=== PATIENT | male | born 1975 | race Caucasian/White ===

== ENCOUNTER 2021-11-07 02:54 | Inpatient (IN) | payer OTHER ==
[~2021-11-07] VITALS: Ht 180.3 cm; Wt 121.8 kg
[2021-11-07 02:57] VITALS: BP 129/67
[2021-11-07] MEDS ORDERED: LISINOPRIL10 MG (03:07)
[2021-11-07] MEDS ORDERED: NOVOLOG100 UNIT/M SUBQ (03:08)
[2021-11-07] MEDS ORDERED: RENAL-VITE TAB0.8 MG PO (03:18)
[2021-11-07] MEDS ORDERED: CARVEDILOL12.5 MG PO (03:18)
[2021-11-07] MEDS ORDERED: GABAPENTIN100 MG PO (03:18)
[2021-11-07] MEDS ORDERED: ROSUVASTATIN CA20 MG PO (03:19)
[2021-11-07] MEDS ORDERED: AMLOD-VALSA-HC1 EAC1 PO (03:19)
[2021-11-07] MEDS ORDERED: SPIRONOLACTONE25 MG PO (03:20)
[2021-11-07] MEDS ORDERED: REQUIP 0.25 M0.25 M1 PO (03:20)
[2021-11-07] MEDS ORDERED: CARDURA XL4 MG PO (03:21)
[2021-11-07] MEDS ORDERED: SODIUM BICARBO650 M3 PO (03:21)
[2021-11-07] MEDS ORDERED: CALCITRIOL0.5 MCG PO (03:21)
[2021-11-07] MEDS ORDERED: LISINOPRIL20 MG PO (03:21)
[2021-11-07] MEDS ORDERED: VAZALORE81 MG PO (03:22)
[2021-11-07 03:35] LABS: INFLUENZA A ANTIGEN Negative (Negative); INFLUENZA B ANTIGEN Negative (Negative)
[2021-11-07 03:38] LABS: HEMATOCRIT 28.5 % (42.0-52.0); HEMOGLOBIN 9.5 gm/dL (14.0-18.0); MCH 31.4 pg (26.0-34.0); MCHC 33.4 g/dL (28.0-37.0); MCV 94.1 fL (80.0-100.0); MPV 7.3 fl. (7.2-11.1); NUCLEATED RBCS 0 /100WBC; PLATELET COUNT* 179 thou/uL (150-400); RBC 3.03 mil/uL (4.50-6.00); WBC 21.9 thou/uL (4.0-11.0)
[2021-11-07 03:47] LABS: CREATININE 10.6 mg/dL (0.6-1.3); POTASSIUM 5.1 mmol/L (3.5-5.1)
[2021-11-07 03:57] LABS: TOTAL BILIRUBIN 0.6 mg/dL (<0.1-1.0); TOTAL PROTEIN 6.9 g/dL (6.4-8.2)
[2021-11-07 04:58] VITALS: BP 150/79
[2021-11-07 05:01] LABS: BE -7.8 mmol/L (-2 to +3); PCO2 36.2 mmHg (35.0-45.0); pH 7.308 (7.340-7.450)
[2021-11-07 05:03] LABS: PO2 149.2 mmHg (75.0-100.0)
[2021-11-07 05:54] LABS: ABSOLUTE BASOPHILS 0.2 thou/uL (0.0-0.2); ABSOLUTE EOSINOPHILS 0.2 thou/uL (0.0-0.7); ABSOLUTE LYMPHOCYTES 0.9 thou/uL (0.8-5.3); ABSOLUTE MONOCYTES 1.3 thou/uL (0.0-1.2); ABSOLUTE NEUTROPHILS 19.3 thou/uL (1.6-8.1); PLATELET ESTIMATE ADEQUATE
[2021-11-07 06:06] LABS: APTT 26.5 Seconds (25.0-31.3); INR 1.1; PROTIME 10.9 Seconds (9.20-11.50)
[2021-11-07 09:21] VITALS: BP 178/84
--- NOTE | 2021-11-07 09:54 | EKG ---
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: TB : 1975 Requested By: Jazzy Young Order Number: [id number] MD: Jonah Smith Measurements Intervals [place] Rate: 94 P: 76 ND: 145 QRS: -4 QRSD: 103 T: 164 QT: 357 QTc: 447 Interpretive Statements Sinus rhythm Repol abnrm suggests ischemia, diffuse leads artifact noted No previous ECG available for comparison Electronically Signed On 11-07-2021 9:54:07 CONTROL OPERATOR by Jonah Smith [email or web address] <ELECTRONICALLY SIGNED> By: Jonah Smith MD, [facility] 11/07/21 0954 0305 0305 Jonah Smith MD, [facility] /EPI
--- NOTE | 2021-11-07 09:55 | EKG ---
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 LUIS : 1975 Requested By: Jazzy Young Order Number: [id number] Reading MD: Jonah Smith Measurements Intervals [place] Rate: 90 P: 57 [place]: 140 QRS: -6 QRSD: 97 T: 162 QT: 369 QTc: 452 Interpretive Statements Sinus rhythm Probable LVH with secondary repol abnrm Baseline wander in lead(s) I,aVR Compared to ECG 11/07/2021 03:05:39 no change Electronically Signed On 11-07-2021 9:55:16 BREAD DOUGH MIXER by Jonah Smith [email or web address] <ELECTRONICALLY SIGNED> By: Jonah Smith MD, [facility] 11/07/21 0955 0406 0406 Jonah Smith MD, [facility] /EPI
[2021-11-07 10:16] LABS: URINE BILIRUBIN NEGATIVE (Negative); URINE BLOOD 1+ (Negative); URINE CLARITY CLEAR; URINE COLOR YELLOW; URINE GLUCOSE-RANDOM 1+ (Negative); URINE KETONES NEGATIVE (Negative); URINE LEUKOCYTES-REFLEX NEGATIVE (Negative); URINE NITRITE-REFLEX NEGATIVE (Negative); URINE PROTEIN 2+ (Negative); URINE UROBILINOGEN 0.2 E.U./dl (0.2-1.0)
[2021-11-07 10:18] LABS: CASTS None Seen /LPF (None Seen); SQUAMOUS 0-3 Few /LPF (0-3); URINE WBC-REFLEX None Seen /HPF (0-5)
[2021-11-07 10:19] LABS: BACTERIA-REFLEX 1-9 Few /HPF (None Seen); CRYSTALS None Seen /LPF (None Seen); URINE RBC 3-10 Few /HPF (0-2)
--- NOTE | 2021-11-07 11:39 | CON ---
[address] [address] CONSULTATION Name: SUSI CHILDS Room: [place] [address] ADM IN M.R.#: [id number] Admission: 11/07/21 Attend Phys: Kellie Reyes Discharge: Date of : 75 Report #: [id number] THIS REPORT FOR: cc: FAM - No family physician/PCP FAM - No family physician/PCP Jonah Smith MD [facility] ~ DATE OF CONSULTATION: 11/07/2021 CARDIOLOGY CONSULTATION HISTORY OF PRESENT ILLNESS: The patient is a 46-year-old white male who I was asked to see in the hospital today after he complained to be in short of breath. The history was obtained from the patient. There are no old records or family members available. According to the patient, he has a long history of diabetes. He developed end-stage renal disease and has been on nocturnal peritoneal dialysis for about 3-1/2 years. His card feeder is in [facility]. He was being considered for a kidney transplant. Apparently, had a stress test a year ago that is abnormal. He was found to have coronary artery disease, not amenable to stenting. He eventually underwent 5-vessel bypass surgery at last November using the vein graft out of his left leg. He states that after surgery, he was in coma and was in the ICU for 40 days. They thought he may have had a stroke. He is currently in litigation with because of the episode because he developed a bedsore while in the hospital. He is now back home, but not very active. He denies any recent chest pain, shortness of breath, palpitations, syncope or peripheral edema. Yesterday was actually his birthday. He celebrated with family. He then went to bed last night and noticed he was very short of breath. Recently, he had been complaining of fatigue. His drove him to the hospital and he was admitted and put on BiPAP. Cardiology consultation requested. PAST MEDICAL HISTORY: Otherwise, significant for knee surgery. He has a history of hypertension, diabetes, hyperlipidemia. CURRENT MEDICATIONS: Consist of the following list, he is on lisinopril, Crestor, amlodipine, losartan, HCTZ, aspirin, carvedilol, Cardura, Requip. ALLERGIES: He has no known drug allergies. FAMILY HISTORY: His father had bypass surgery. SOCIAL HISTORY: He is . He and his live in [place]. He used to work in [place] and no longer is working. He used to smoke half pack of cigarettes a day, quit a year ago after his bypass surgery. No alcohol. [place] [address] CONSULTATION Name: SUSI CHILDS Room: [place] [address] ADM IN M.R.#: [id number] Admission: 11/07/21 Attend Phys: Kellie Reyes Discharge: Date of : 75 Report #: [id number] REVIEW OF SYSTEMS: He has history of obesity. He is 5 feet 11 inches, used to weigh over 300 pounds. He is now down to 240 pounds. He does snore at night and has daytime somnolence. He is scheduled for a sleep study. There is no history of asthma. He denied any fever, cough or lower extremity edema. No history of bleeding. His appetite has been okay. No history of liver disease, cancer, psychiatric illness or chronic skin condition. PHYSICAL EXAMINATION: GENERAL: Revealed a middle-aged male, appeared in no distress. VITAL SIGNS: He had a blood pressure of 130/70, pulse was 90. He was afebrile. HEENT: He was anicteric. Conjunctivae pink. Mucous membranes moist. NECK: Neck veins do not appear distended. No carotid bruits. Neck is supple. CHEST: Clear to auscultation. HEART: Regular rate and rhythm, no significant murmurs. ABDOMEN: Obese. He has dialysis catheter in place. EXTREMITIES: Had no pitting edema. Posterior tibial pulse 2+ bilaterally. SKIN: Cool and dry. NEUROLOGIC: Nonfocal. IMAGING DATA: His ECG on admission showed a sinus rhythm, left ventricular hypertrophy, repolarization changes. His workup, he had a portable chest x-ray last night that showed elevated left hemidiaphragm, interstitial edema. LABORATORY DATA: Potassium 5.1, creatinine was 10. Liver function studies were normal. High-sensitivity troponin was 4750, repeat was 4909. BNP was 21,617. His hemoglobin 9.5. His COVID antigen stat test was negative. The patient has not received the vaccine yet. IMPRESSION AND RECOMMENDATIONS: 1. Type 2 myocardial infarction. I would not recommend stress testing or cardiac catheterization. In addition to aspirin, I would start Plavix. 2. Pulmonary edema. Recommend echocardiogram. 3. End-stage renal disease. The patient on peritoneal dialysis. 4. Previous tobacco abuse. 5. Diabetes. 6. Hypertension. The patient is on NIGHAT inhibitor, ARB, beta-deangelo, calcium deangelo and diuretic. 7. Hyperlipidemia. The patient is on a statin drug. 8. Snore at night. The patient is cleared for sleep study. 9. History of morbid obesity. <ELECTRONICALLY SIGNED> By: Jonah Smith MD, [facility] 11/07/21 1139 0801 [id number] Smith MD, [facility] /nt
--- NOTE | 2021-11-07 11:56 | 2DMMODE ---
[place] [address] 2 D/M-MODE ECHOCARDIOGRAM Name: SUSI CHILDS Room: [place] [address] ADM IN Esequiel.Desmond.#: [id number] Admission: 11/07/21 Attend Phys: Matt Myrick Discharge: Date of : 75 Date of Service: 11/07/21 1155 Report #: [id number] THIS REPORT FOR: cc: FAM - No family physician/PCP FAM - No family physician/PCP Jonah Smith MD [facility] ~ APPROVED REPORT Study performed: 11/07/2021 10:24:24 EXAM: Comprehensive 2D, Doppler, and color-flow Echocardiogram Patient Location: In-Patient Room #: [facility] Status: routine BSA: 2.39 HR: 90 bpm BP: 150/79 mmHg Rhythm: NSR Other Information Study Quality: Adequate Technically limited study due to poor endocardial definition, body habitus. Indications Acute [place] Dyspnea Echo Enhancing Agent Indication: Endocardial border delineation Agent(s) / Amount(s) Used: Agitated Saline 3 cc 2D Dimensions IVSd: 13.64 (7-11mm) LVOT Diam: 23.49 (18-24mm) LVDd: 46.26 mm PWd: 12.60 (7-11mm) Ascending Ao: 31.09 (22-36mm) LVDs: 30.97 (25-40mm) Aortic Root: 33.40 mm Volumes Left Atrial Volume (Systole) LA ESV Index: 25.30 mL/[place]2 [place] [address] 2 D/M-MODE ECHOCARDIOGRAM Name: SUSI CHILDS Room: [address] IN .R.#: [id number] Admission: 11/07/21 Attend Phys: Matt Myrick Discharge: Date of : 75 Date of Service: 11/07/21 1155 Report #: [id number] AoV Peak Elvin.: 1.36 m/s AO Peak Gr.: 7.36 mmHg LVOT Max P.27 mmHg AO Mean Gr.: 4.10 mmHg LVOT Mean P.87 mmHg LVOT Max V: 1.25 m/s AO V2 VTI: 23.72 cm LVOT Mean V: 0.77 m/s TAWANDA (VTI): 4.13 cm2 LVOT V1 VTI: 22.58 cm Mitral Valve E/A Ratio: 1.10 MV Decel. Time: 125.53 ms MV E Max Elvin.: 1.13 m/s MV PHT: 36.41 ms MVA (PHT): 6.04 cm2 TDI E/Lateral E': 9.42 Lateral E' Elvin.: 0.12 m/s Pulmonary Valve PV Peak Elvin.: 1.19 m/s PV Peak Gr.: 5.71 mmHg Left Ventricle The left ventricle is normal size. apical akinesis Mild concentric left ventricular hypertrophy. Left ventricular systolic function is mildly decreased. LVEF is 40-45%. Grade IV - fixed restrictive diastolic dysfunction. Right Ventricle The right ventricle is normal size. The right ventricular systolic function is normal. Atria The left atrium size is normal. The right atrium size is normal. Aortic Valve Mild aortic valve sclerosis. No aortic regurgitation is present. There is no aortic valvular stenosis. Mitral Valve The mitral valve is normal in structure. Trace mitral regurgitation. No evidence of mitral valve stenosis. Tricuspid Valve The tricuspid valve is normal in structure. Unable to assess PA pressure. [place] [address] 2 D/M-MODE ECHOCARDIOGRAM Name: SUSI CHILDS Room: [address] IN .R.#: [id number] Admission: 11/07/21 Attend Phys: Matt Myrick Discharge: Date of : 75 Date of Service: 11/07/21 1155 Report #: [id number] Pulmonic Valve Pulmonic valve is not well visualized. There is no pulmonic valvular regurgitation. Great Vessels The aortic root is normal in size. IVC is normal in size and collapses >50% with inspiration. Pericardium There is no pericardial effusion. <Conclusion> apical akinesis Mild concentric left ventricular hypertrophy. LVEF is 40-45%. Mild aortic valve sclerosis. <ELECTRONICALLY SIGNED> By: Jonah Smith MD, FACC 11/07/21 1155 1155 1155 Jonah Smith MD, FAC /INF
[2021-11-07 20:37] VITALS: BP 147/72
== END 2021-11-08 | disposition home or self-care (01) | DRG 189 ==
LOC: EDBD 02:54 → M.ERS 02:54 → M.TBA-ER 04:41 → EDBD 04:41 → M.2W 04:41
PROVIDERS: Emergency Medicine; ADMIT Internal Medicine; ATTEND Internal Medicine
PROC: 5A09357 Assistance with Respiratory Ventilation, Less than 24 Consecutive Hours, Continuous Positive Airway Pressure (ICD-10-PCS; principal; 2021-11-07)
PROC: 3E1M39Z Irrigation of Peritoneal Cavity using Dialysate, Percutaneous Approach (ICD-10-PCS; 2021-11-07)
DX: J96.01 Acute respiratory failure with hypoxia (principal); N18.6 End stage renal disease; I21.A1 Myocardial infarction type 2; I12.0 Hypertensive chronic kidney disease with stage 5 chronic kidney disease or end stage renal disease; Z91.018 Allergy to other foods; Z20.822 Contact with and (suspected) exposure to COVID-19; Z95.1 Presence of aortocoronary bypass graft; I25.10 Atherosclerotic heart disease of native coronary artery without angina pectoris; E11.22 Type 2 diabetes mellitus with diabetic chronic kidney disease; Z99.2 Dependence on renal dialysis; Z79.4 Long term (current) use of insulin; E78.5 Hyperlipidemia, unspecified; E66.01 Morbid (severe) obesity due to excess calories; Z68.37 Body mass index [BMI] 37.0-37.9, adult; Z87.891 Personal history of nicotine dependence